=== PATIENT | female | born 1970 | race African-American/Black ===

== ENCOUNTER 2017-01-17 13:28 | Emergency (ER) | payer OTHER ==
[~2017-01-17] VITALS: Ht 170.2 cm; Wt 74.8 kg
[2017-01-17] MEDS ORDERED: PREDNISONE 10 M10 MG PO (14:20)
[2017-01-17] MEDS ORDERED: NORFLEX100 MG PO (14:20)
[2017-01-17] MEDS ORDERED: VALIUM5 MG PO (16:02)
[2017-01-17 18:02] VITALS: BP 137/76
== END 2017-01-17 18:03 | disposition home or self-care (01) ==
LOC: ER 13:28
DX: M54.12 Radiculopathy, cervical region (principal); Z86.2 Personal history of diseases of the blood and blood-forming organs and certain disorders involving the immune mechanism

== ENCOUNTER → 2017-02-01 | Outpatient (CLI) | payer OTHER ==
[~2017-02-01] MED LIST: NORFLEX100 MG PO; PREDNISONE 10 M10 MG PO; VALIUM5 MG PO
== END ==
LOC: MRI 07:13
DX: M47.892 Other spondylosis, cervical region (principal)